=== PATIENT | male | born 1975 | race Caucasian/White ===

== ENCOUNTER 2020-01-30 17:15 | Emergency (ER) | payer MEDICAID ==
[~2020-01-30] VITALS: Ht 172.7 cm; Wt 101.8 kg
[2020-01-30 17:35] VITALS: BP 145/89
--- NOTE | 2020-01-30 17:45 | NUR ---
PT AMBULATED TO BED 10
--- NOTE | 2020-01-30 17:46 | NUR ---
44/M C/O RIGHT HIP/THIGH PAIN RADIATING DOWN RIGHT LOWER LEG WITH SWELLING X TODAY. NO CP OR SOB. DENIES TRAUMA OR BUG BITES. MED HX: 1 CARDIAC STENT S/P STEMI, 2 STENTS IN RIGHT THIGH S/P DVT
--- NOTE | 2020-01-30 17:50 | NUR ---
DR. MARTINEZ EVALUATING PT AT BEDSIDE
[2020-01-30] MEDS: HYDROcodone/APAP 5/325 MG 1 TAB TAB PO ONE (18:05)
--- NOTE | 2020-01-30 18:06 | NUR ---
U/S TECH AT BEDSIDE
[2020-01-30 18:45] VITALS: BP 138/84
--- NOTE | 2020-01-30 18:45 | NUR ---
Patient discharged with v/s stable. Written and verbal after care instructions given and explained. Patient verbalized understanding. Ambulatory with steady gait. All questions addressed prior to discharge. Advised to follow up with PMD.
== END 2020-01-30 18:45 | disposition home or self-care (01) ==
LOC: MED 17:15
DX: M54.41 Lumbago with sciatica, right side (principal); I51.9 Heart disease, unspecified
CPT/HCPCS: 93971; 99284; Q0092

== ENCOUNTER 2021-12-04 11:09 | Emergency (ER) | payer BC, MEDICAID ==
[~2021-12-04] VITALS: Ht 172.7 cm; Wt 96.3 kg
[2021-12-04 11:26] VITALS: BP 122/90
--- NOTE | 2021-12-04 11:28 | NUR ---
SENT TO LOBBY TO WAIT
--- NOTE | 2021-12-04 12:17 | NUR ---
C/O R ANKLE PAIN X 3 DAYS AGO. DENIES TRAUMA. PT ALSO SAID HAS BEEN FEELING A LITTLE LIGHTHEADED THIS MORNING. 07/11 PAIN. A&OX4, SKIN INTACT, VITALS WNL, AND STEADY GAIT. ABY HX:STEMI 2018, STENT IN HEART AND LEG
--- NOTE | 2021-12-04 13:04 | NUR ---
PT'S RIGHT ANKLE WRAPPED WITH 3" SHILA WRAP. CMS WNL BEFORE AND AFTER.
[2021-12-04 13:08] VITALS: BP 122/90
--- NOTE | 2021-12-04 13:08 | NUR ---
Patient discharged with v/s stable. Written and verbal after care instructions ABOUT HEEL SPUR AND ANKLE PAIN given and explained. Patient verbalized understanding. Ambulatory with steady gait. All questions addressed prior to discharge. Advised to follow up with PMD.
== END 2021-12-04 13:08 | disposition home or self-care (01) ==
LOC: MED 11:09
DX: M77.31 Calcaneal spur, right foot (principal); I10 Essential (primary) hypertension; I25.2 Old myocardial infarction
CPT/HCPCS: 73610; 99283